=== PATIENT | male | born 1960 | race Caucasian/White ===

== ENCOUNTER → 2020-04-03 11:02 | Outpatient (CLI) | payer BC, SELFPAY ==
--- NOTE | ~2020-04-03 | MR_ITS ---
EXAMINATION: MR pelvis wo con DATE: 04/03/2020 11:35 INDICATION: Coccydynia TECHNIQUE: Magnetic resonance imaging (MRI) of the pelvis was performed without intravenous contrast. Sequences included axial T1-weighted FSE, axial T2-weighted FS FSE, coronal T1-weighted FSE, coronal T2-weighted FS FSE, sagittal T1-weighted FSE and sagittal T2-weighted FS FSE. COMPARISON: None. FINDINGS: There is normal alignment of the coccyx with normal marrow signal. No abnormal increased disc signal. There appears be a tiny posteriorly directed spicules of bone at the tip of the coccyx with minimal immediately overlying increased soft tissue fluid signal. There is a mildly prominent draining vein a long the ventral surface of the coccyx. 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 No evident erosions or abnormally increased fluid signal along the sacrum and joints to suggest an infla mmatory sacroiliitis. Bilateral hip joint spaces appear normal with no joint effusions. Small bilater al hydroceles. This lower limbs in the visualized pelvis appear normal. No free fluid in the pelvis. No pathologically enlarged pelvic or inguinal lymphadenopathy. IMPRESSION: 1. Mildly prominent draining vein along the ventral surface of the coccyx along with minimal increase d fluid signal consistent with minimal inflammation in the dorsal soft tissues about a tiny posterior ly directed spiculated the tip of the coccyx. Reviewed, dictated and finalized at location A. [employer] IMPRESSION: 1. Mildly prominent draining vein along the ventral surface of the coccyx along with minimal increased fluid signal consistent with minimal inflammation in th e dorsal soft tissues about a tiny posteriorly directed spiculated the tip of t he coccyx.
== END ==
PROVIDERS: PCP Student in an Organized Health Care Education/Training Program; Visit Provider Student in an Organized Health Care Education/Training Program
DX: M53.3 Sacrococcygeal disorders, not elsewhere classified (principal)
CPT/HCPCS: 72195